=== PATIENT | female | born 1990 | race Caucasian/White ===

== ENCOUNTER 2022-07-04 12:05 | Outpatient (CLI) | payer BC, SELFPAY ==
[2022-07-04 13:16] LABS: SARS-CoV-2 RNA PCR Negative (Negative)
[2022-07-04 13:17] LABS: Strep Group A RT-PCR Not Detected (Negative)
== END 2022-07-04 12:06 | disposition home or self-care (01) ==
PROVIDERS: PCP Internal Medicine; Visit Provider Internal Medicine
DX: J02.9 Acute pharyngitis, unspecified (principal); Z20.822 Contact with and (suspected) exposure to COVID-19
CPT/HCPCS: 87651; C9803; U0003; U0005

== ENCOUNTER 2024-07-06 14:54 | Emergency (ER) | payer BC, SELFPAY ==
--- NOTE | 2024-07-06 14:58 | ED.URI ---
HPI - URI/Sore Throat General Chief Complaint: Upper Respiratory Infection Stated Complaint: Sinus Infection Symptoms Time Seen by Provider: 07/06/24 14:58 Source: patient Mode of arrival: ambulatory Limitations: no limitations History of Present Illness HPI Narrative: Maday is a 34-year-old female patient presenting to the clinic today with complaints of possible sinus infection times. She reports she is having URI, sinus pressure, cough, and sore throat times 3-4 days. She reports her son is home sick with a urine infection. Did a COVID test yesterday and was negative MD elicited complaint: cough, sore throat and nasal congestion Related Data Home Medications Medication Instructions Recorded Confirmed fluoxetine 10 mg capsule mg 07/06/24 Allergies Allergy/AdvReac Type Severity Reaction Status Date / Time amoxicillin Allergy Unknown Unknown Verified 07/06/24 15:30 cephalexin Allergy Unknown Unknown Verified 07/06/24 15:30 Cephalosporins Allergy Unknown Unknown Verified 07/06/24 15:30 clarithromycin Allergy Unknown Unknown Verified 07/06/24 15:30 Penicillins Allergy Unknown Unknown Verified 07/06/24 15:30 Sulfa (Sulfonamide Allergy Unknown Unknown Verified 07/06/24 15:30 Antibiotics) CEPHALEXIN MONOHYDRATE Allergy Unknown Unknown Uncoded 07/06/24 15:30 SILK TAPE Allergy Unknown Unknown Uncoded 07/06/24 15:30 Review of Systems Review of Systems: Pertinent positives per HPI. Patient denies any fever, chills, rash, headache, visual changes, dizziness, cough, shortness of breath, chest pain, palpitations, nausea, vomiting, diarrhea, constipation, abdominal pain, or any urinary issues. PMFSH Family History Family History Father Hypertension Mother Patient's mother is in good health Other Diabetes mellitus Social History Social History Smoking status: Never smoker Alcohol intake: never Comments At the time of my signature, I reviewed and agree with the nursing past medical, surgical, social, and family history. There is no relevant family history pertinent to the patient complaint. Exam Narrative: General: Well-developed, well nourished, in no apparent distress Head: Normocephalic, atraumatic Eyes: Pupils equally round and reactive to light bilaterally, EOM intact, sclera and conjunctive clear, no discharge, lids normal Ears: TMs intact and congested ear canals clear, no drainage, grossly hearing normal. Nose: Nares patent, clear nasal discharge, no inflammation, no sinus tenderness. Mouth: Oral pharynx red without lesions or masses, good dentition, MMM. Neck: Supple, trachea midline, no enlargement of anterior or posterior cervical nodes, no thyroid masses or goiter palpable. Cardio: Regular rate and rhythm, s1 and s2 normal, no murmur appreciated. Resp: Clear to auscultation bilaterally, no rhonchi, rales, wheezing or rubs Course Course Emergency Course: Portions of this record may have been created with voice recognition software. Level of Care: Express Care Visit Vital Signs Vital signs: Vital Signs Temperature 37.0 C 07/06/24 15:07 Pulse Rate 80 07/06/24 15:07 Respiratory Rate 18 07/06/24 15:07 Blood Pressure 138/86 07/06/24 15:07 Pulse Oximetry 100 07/06/24 15:07 Temperature 37.0 C 07/06/24 15:07 Pulse Rate 80 07/06/24 15:07 Respiratory Rate 18 07/06/24 15:07 Blood Pressure 138/86 07/06/24 15:07 Pulse Oximetry 100 07/06/24 15:07 Vital signs reviewed MDM - URI/Sore Throat MDM Narrative Medical decision making narrative: At the time of visit patient is resting comfortably on the exam table. Patient appears to be nontoxic. Labs: Strep test was performed and negative in the clinic today. We will send for culture. Plan: I suspect patient has URI pharyngitis. Purple send in prescription for prednisone. Long
[2024-07-06 15:07] VITALS: BP 138/86; PULSE 80; RESP 18; TEMP 37; O2SAT 100
[2024-07-06 15:25] LABS: EDSTREPNEGPOS1 Negative
== END 2024-07-06 15:35 | disposition home or self-care (01) ==
PROVIDERS: Emergency Provider Nurse Practitioner Family; PCP Internal Medicine
DX: J06.9 Acute upper respiratory infection, unspecified (principal); J02.9 Acute pharyngitis, unspecified
CPT/HCPCS: 87081; 87880; 99213; G0463

== ENCOUNTER 2024-07-11 15:03 | Emergency (ER) | payer BC, SELFPAY ==
--- NOTE | 2024-07-11 15:09 | ED.URI ---
HPI - URI/Sore Throat General Chief Complaint: Upper Respiratory Infection Stated Complaint: SORE THROAT Time Seen by Provider: 07/11/24 15:12 Source: patient, RN notes reviewed and old records reviewed Mode of arrival: ambulatory Limitations: no limitations History of Present Illness HPI Narrative: 34-year-old female presents to the [facility] with complaints of a sore throat. Significant other tested positive for strep this morning, was seen on the 06 of July for similar complaints, treated with prednisone. At that time her strep culture was negative. Related Data Home Medications Medication Instructions Recorded Confirmed fluoxetine 10 mg capsule 10 mg PO DAILY 07/06/24 07/11/24 Allergies Allergy/AdvReac Type Severity Reaction Status Date / Time amoxicillin Allergy Unknown Unknown Verified 07/11/24 15:10 cephalexin Allergy Unknown Unknown Verified 07/11/24 15:10 Cephalosporins Allergy Unknown Unknown Verified 07/11/24 15:10 clarithromycin Allergy Unknown Unknown Verified 07/11/24 15:10 Penicillins Allergy Unknown Unknown Verified 07/11/24 15:10 Sulfa (Sulfonamide Allergy Unknown Unknown Verified 07/11/24 15:10 Antibiotics) CEPHALEXIN MONOHYDRATE Allergy Unknown Unknown Uncoded 07/11/24 15:10 SILK TAPE Allergy Unknown Unknown Uncoded 07/11/24 15:10 Review of Systems Review of Systems: All systems reviewed & are unremarkable except as noted in HPI and below Constitutional: Constitutional: Reports no additional constitutional complaints Eyes: Eyes: Reports no additional eye complaints ENT: Reports as per HPI and Reports sore throat Cardiovascular: Cardiovascular: Reports no additional cardiovascular complaints, Denies chest pain and Denies dyspnea Respiratory: Respiratory: Reports no additional respiratory complaints, Denies chest congestion, Denies cough and Denies dyspnea Gastrointestinal: Gastrointestinal: Reports no additional gastrointestinal complaints, Denies abdominal pain, Denies nausea and Denies vomiting Musculoskeletal: Musculoskeletal: Reports no additional musculoskeletal complaints Integumentary/Breasts: Skin/Breast: Reports system reviewed and no additional complaints, except as docu Neurologic: Reports system reviewed and no additional complaints, except as documented Psychiatric: Psychiatric: Reports no additional psychiatric complaints Allergic/Immunologic: Allergic/Immunologic: Reports no additional allergic/immunologic complaints [facility], [facility] Family History Family History Father Hypertension Mother Patient's mother is in good health Other Diabetes mellitus Social History Social History Smoking status: Never smoker Alcohol intake: never Comments At the time of my signature, I reviewed and agree with the nursing past medical, surgical, social, and family history. There is no relevant family history pertinent to the patient complaint. Exam Const: General: cooperative, healthy appearing, comfortable, no acute distress, well developed, alert and well nourished Nutritional Appearance: well nourished Orientation/consciousness: patient oriented x3 Limitations: no limitations HENMT: Head: normal to inspection Ears: hearing grossly normal bilaterally and external ears normal Face/Nose/Sinus: Normal external nose present, Normal nares present, Normal nasal mucous membranes and turbinates present, normal facial exam and face symmetric Face and sinus: normal facial exam and face symmetric Mouth: Yes Normal oral and palatal mucosa present, Yes lip normal and Yes tongue normal Throat: uvula midline, posterior oropharynx abnormal erythema; no cobblstoning, no edema, no exudates and no lacerations, postnasal drainage and no uvular edema Eyes: General: appearance normal, both eyes and all related structures Alignment and Position: alignment normal Periorbital: periorbita
[2024-07-11 15:15] VITALS: BP 137/85; PULSE 68; RESP 16; TEMP 36.6; O2SAT 100
[2024-07-11 15:26] LABS: EDSTREPNEGPOS1 Positive (Negative)
== END 2024-07-11 15:39 | disposition home or self-care (01) ==
PROVIDERS: Emergency Provider Nurse Practitioner; PCP Internal Medicine
DX: J02.0 Streptococcal pharyngitis (principal)
CPT/HCPCS: 87880; 99213; G0463